=== PATIENT | male | born 1970 | race Caucasian/White ===

== ENCOUNTER 2018-08-28 06:32 | Emergency (ER) | payer OTHER ==
[2018-08-28] MEDS ORDERED: NS 1,000 ML IV ONE (07:16)
[2018-08-28] MEDS ORDERED: EPINEPHrine 1 MG/ML INJ IM ONE (07:16)
[2018-08-28] MEDS ORDERED: methylPREDNISolone SOD SUCC 125 MG/2 ML VIAL IVP ONE (07:16)
--- NOTE | 2018-08-28 07:21 | EDPHY ---
H & P Stated Complaint: hives all over body Time Seen by Provider: 08/28/18 07:01 HPI/ROS: CHIEF COMPLAINT: Hives HISTORY OF PRESENT ILLNESS: 48-year-old male presents with generalized hives. Onset of hives yesterday evening, increased today. The hives are mainly on the torso, but also scattered on the extremities. No difficulty breathing, swelling or dizziness. No prior similar allergic reaction. Taking a a new supplement; no other new medications, soaps or detergents. REVIEW OF SYSTEMS: complete 10 point ROS reviewed and is negative except for the noted elements in the HPI - Personal History Current Tetanus Diphtheria and Acellular Pertussis (TDAP): Yes - Medical/Surgical History Hx Asthma: No Hx Chronic Respiratory Disease: No Hx Diabetes: No Hx Cardiac Disease: No Hx Renal Disease: No Hx Cirrhosis: No Hx Alcoholism: No Hx HIV/AIDS: No Hx Splenectomy or Spleen Trauma: No - Social History Smoking Status: Never smoked Alcohol Use: Sober Drug Use: None - Physical Exam Exam: General Appearance: Alert, pleasant Eyes: Pupils equal and round, no periorbital swelling ENT, Mouth: Mucous membranes moist, no oral swelling Neck: Normal inspection, no stridor Respiratory: Lungs are clear to auscultation, no wheezing Cardiovascular: Regular rate and rhythm Neurological: A&O, nonfocal, normal gait Skin: Generalized hives, face is spared Extremities: No swelling Psychiatric: Mood and affect normal Constitutional: Initial Vital Signs Temperature (C) 36.4 C 08/28/18 06:36 Heart Rate 95 08/28/18 06:36 Respiratory Rate 20 08/28/18 06:36 Blood Pressure 135/85 H 08/28/18 06:36 O2 Sat (%) 98 08/28/18 06:36 O2 Delivery Mode Room Air Allergies/Adverse Reactions: Penicillins Allergy (Verified 08/28/18 06:40) Home Medications: Medication Instructions Recorded EPINEPHrine [Epipen 0.3 MG] 0.3 mg IM ONCE #2 syr 08/28/18 predniSONE 60 mg PO DAILY #9 tab 08/28/18 Medical Decision Making ED Course/Re-evaluation: This patient presents with generalized hives. Benadryl IV, Solu-Medrol IV and epinephrine IM given. Feels better after meds. Still has hives, hopefully hives will subside over the next 12-24 hrs. Treatment and warning signs d/w pt. Will f/u with life insurance underwriter. d/c new supplement. Differential Diagnosis: Differential diagnosis includes though it is not limited to laryngeal edema, bronchospasm, hypotension, angioedema. - Data Points Medications Given: Discontinued Medications Diphenhydramine HCl (Benadryl Injection) 25 mg IVP EDNOW ONE Stop: 08/28/18 07:17 Last Admin: 08/28/18 07:32 Dose: 25 mg Epinephrine HCl (Epinephrine) 0.3 mg IM EDNOW ONE Stop: 08/28/18 07:17 Last Admin: 08/28/18 07:29 Dose: 0.3 mg Sodium Chloride (Ns) 1,000 mls @ 0 mls/hr IV ONCE ONE; Wide Open PRN Reason: Protocol Stop: 08/28/18 07:17 Last Admin: 08/28/18 07:28 Dose: 1,000 mls Methylprednisolone Sodium Succinate (Solu-Medrol) 125 mg IVP EDNOW ONE Stop: 08/28/18 07:17 Last Admin: 08/28/18 07:31 Dose: 125 mg Departure - Departure Disposition: Home, Routine, Self-Care Clinical Impression: Urticaria Condition: Good Instructions: Urticaria (ED) Additional Instructions: Take Claritin in the morning and Benadryl at night while the rash persists. Take prednisone as prescribed. Return for worsening symptoms or any concerns. Referrals: Dax Ward [Primary Care Provider] - As per Instructions Prescriptions: EPINEPHrine [Epipen 0.3 MG] 0.3 mg IM ONCE #2 syr predniSONE 60 mg PO DAILY #9 tab
[2018-08-28 08:41] VITALS: BP 105/63
[2018-08-28] MEDS ORDERED: EPINEPHrine KIT (USE FOR EPIPEN) 1 MG/ML IM ONE (10:07)
[2018-08-28] MEDS ORDERED: methylPREDNISolone SOD SUCC 125 MG/2 ML VIAL ONE (10:07)
== END 2018-08-28 08:40 | disposition home or self-care (01) ==
DX: L50.9 Urticaria, unspecified (principal); E86.9 Volume depletion, unspecified; Z88.0 Allergy status to penicillin
CPT/HCPCS: 96374; J0171; J1200; J2930